=== PATIENT | female | born 1960 | race Caucasian/White ===

== ENCOUNTER 2019-09-12 20:19 | Emergency (ER) | payer SELFPAY ==
[~2019-09-12] VITALS: Ht 162.6 cm; Wt 63.5 kg
[2019-09-12 20:25] VITALS: BP_SYST 190
[2019-09-12] MEDS ORDERED: cloNIDine HCL 0.1 MG TABLET PO ONE ×2 (20:45→21:15)
[2019-09-12 21:40] VITALS: BP_SYST 160
== END 2019-09-12 21:40 | disposition home or self-care (01) ==
LOC: SED 20:19
DX: I10 Essential (primary) hypertension (principal)
CPT/HCPCS: 99283